=== PATIENT | male | born 1990 | race Two or more races ===

== ENCOUNTER 2025-04-05 16:28 | Emergency (ER) | payer SELFPAY ==
[~2025-04-05] VITALS: Ht 182.9 cm; Wt 90.1 kg
--- NOTE | 2025-04-05 18:51 | ED.PDOC ---
Back pain HPI HPI Comments PT C/O 05/29 BACK PAIN NON RADIATING THAT STARTED WHILE WORKING [employer]. PT REPORTS HAVING TO "PUSH ON SOME PALLETS" BEFORE PAIN BEGAN. DENIES NUMBNESS OR WEAKNESS Chief Complaint: Back Pain Time Seen by MD: 18:38 Reviewed Notes: Nurses Notes, Medications, Allergies Allergies: Coded Allergies: NO KNOWN ALLERGIES (Unverified , 04/05/25) Information Source: Patient Mode of Arrival: Ambulatory Past Medical History PAST MEDICAL HISTORY: Denies Surgical History: Denies all surgeries Family History Family History: Reviewed,noncontributory to illness Social History Smoker: Non-Smoker Alcohol: Denies ETOH Use Drugs: Denies Drug Use Constitutional: denies: chills, diaphoresis, fatigue, fever, malaise, sweats, weakness, others EENTM: denies: blurred vision, double vision, ear bleeding, ear discharge, ear drainage, ear pain, ear ringing, eye pain, eye redness, hearing loss, mouth pain, mouth swelling, nasal discharge, nose bleeding, nose congestion, nose pain, photophobia, tearing, throat pain, throat swelling, voice changes, others Respiratory: denies: cough, hemoptysis, orthopnea, SOB at rest, shortness of breath, SOB with excertion, stridor, wheezing, others Cardiovascular: denies: chest pain, dizzy spells, diaphoresis, Dyspnea on exertion, edema, irregular heart beat, left arm pain, lightheadedness, p alpitations, PND, syncope, others Genitourinary: denies: burning, dysuria, flank pain, frequency, hematuria, incontinence, penile discharge, penile sore, pain, testicle pain, testicle swelling, urgency, others Neurological: denies: dizziness, fainting, headache, left sided numbness, left sided weakness, numbness, paresthesia, pre-existing deficit, right sided numbness, right sided weakness, seizure, speech problems, tingling, tremors, weakness, others Musculoskeletal: reports: back pain; denies: gout, joint pain, joint swelling, muscle pain, muscle stiffness, neck pain, others Integumetry: denies: bruises, change in color, change in hair/nails, dryness, laceration, lesions, lumps, rash, wounds, others Allergic/Immunocompromised: denies: Difficulty Healing, Frequent Infections, Hives, Itching, others Hematologic/Lymphatic: denies: anemia, blood clots, easy bleeding, easy bruising, swollen glands, others Endocrine: denies: excessive hunger, excessive sweating, excessive thirst, excessive urination, flushing, intolerance to cold, intolerance to heat, unexplained weight gain, unexplained weight loss, others Psychiatric: denies: anxiety, bipolar disorder, depression, hopeless, panic disorder, schizophrenia, sleepless, suicidal, others Physical Exam General Appearance: No Apparent Distress, Normal HEENT: Pharynx Normal Neck: Full Range of Motion, Non-Tender Respiratory: Lungs Clear, No Respiratory Distress, Normal Breath Sounds Cardiovascular: No Murmur, Normal Peripheral Pulses, Regular Rate/Rhythm Breast Exam: Deferred Gastrointestinal: Non Tender, Soft Genitalia: Deferred Pelvic: Deferred Rectal: Deferred Extremities: Normal capillary refill, Normal inspection, Normal range of motion, Non-tender, No pedal edema Musculoskeletal : Apperance: Normal Neurologic: Alert, No Motor Deficits, Normal Affect, Normal Mood, No Sensory Deficits Cerebellar Function: Normal Reflexes: Normal Skin: Dry, Normal Color, Warm Lymphatic: No Adenopathy Was a procedure done? Was a procedure done?: No Back Pain Differential Dx Differential Diagnosis: Fracture, Musculoskeletal Pain X-Ray, Labs, Meds, VS Vital Signs Date Time Temp Pulse Resp B/P (MAP) Pulse Ox O2 Delivery O2 Flow Rate FiO2 04/05/25 17:58 97.7 73 16 123/64 (83) 98 97.7 Current Medications Medications (Trade) Dose Ordered Sig/Elif Route Start Time Stop Time Status Last Admin Ketorolac Tromethamine (Toradol Injection) 60 mg ONCE ONCE IM 04/05/25 19:00 04/05/25 19:01 DC 04/05/25 20:00 Dexamethasone Sodium Phosphate (Decadron Injection) 10 mg ONCE ONCE IM 04/05/25 19:00 04/05/25 19:01 DC 04/05/25 19:00 X-Ray, Labs, Meds, VS Comment Lumbar spine x-ray shows no acute fractures subluxations or osseous lesions. Likely lumbar muscle strain. Patient given Toradol and Decadron IM reports improvement in pain and function requesting discharge at this time. Script trial of tizanidine and Medrol Dosepak. Advised take medications as prescribed side effects discussed. Advised on rice. And heat. Follow up with your PCP in 2-3 days as necessary consider further imaging such as MRI or physical therapy if no improvement. ER return precautions given patient indicates understanding agrees with discharge plan of care. Time of 1ST Reevaluation: 18:51 Reevaluation 1ST: Unchanged Time of 2ND Reevaluation: 20:13 Reevaluation 2ND: Improved Patient Education/Counseling: Diagnosis, Treatment, Prognosis, Need For Follow Up Family Education/Counseling: No Family Present SEPSIS Sepsis Screen Date sepsis recognized/suspect: Apr 05, 2025 Time Sepsis recognized/suspect: 1800 Recent Procedure: No On Antibiotic Therapy: No Respiratory Rate >20: No Heart Rate >90: No Temp<36 C (96.8 F) or >38.3 C: No SBP <90 or MAP <65 mmHG: No New Acute Mental Status Change: No Is the patient on CPAP, BIPAP,: No Physician Orders Lumbar Spine 3 View (04/05/25 19:04) Vital Signs Date Time Temp Pulse Resp B/P (MAP) Pulse Ox O2 Delivery O2 Flow Rate FiO2 04/05/25 17:58 97.7 73 16 123/64 (83) 98 97.7 Medications Medications Dose Ordered Sig/Elif Route Start Time Stop Time Status Last Admin Dose Admin Dexamethasone Sodium Phosphate 10 mg ONCE ONCE IM 04/05/25 19:00 04/05/25 19:01 DC 04/05/25 19:00 Ketorolac Tromethamine 60 mg ONCE ONCE IM 04/05/25 19:00 04/05/25 19:01 DC 04/05/25 20:00 Departure 1 Departure Time of Disposition: 20:09 Impression: Primary Impression: Lumbar sprain Qualified Codes: S33.5XXA - Sprain of ligaments of lumbar spine, initial encounter Disposition: 01 HOME / SELF CARE / HOMELESS Condition: Stable e-Prescriptions Tizanidine Hydrochloride (Tizanidine Hcl) 4 Mg Tab 4 MG PO BID PRN for 5 Days, #10 TAB Prov: CHARLEE SANDERS 04/05/25 Methylprednisolone (Medrol Dosepak) 4 Mg Evan 4 MG PO UD for 6 Days, #21 TAB UAD Prov: CHARLEE SANDERS 04/05/25 Discharged With: Self Critical Care Note Critical Care Time?: No Stability Stability form required: No CHARLEE SANDERS Apr 05, 2025 18:51
--- NOTE | 2025-04-05 19:47 | DVH ---
EXAMINATIONS: 3 views of the lumbar spine CLINICAL HISTORY: INJURY/PAIN COMPARISON: None Findings and impression: No grossly displaced fractures or subluxations identified. Visualized vertebral body heights appear maintained. Alignment is relatively preserved. The sacroiliac joints appear symmetric. If there is persistent concern for injury, CT may be considered to further evaluate.
[2025-04-05] MEDS: KETOROLAC TROMETH 60MG/2ML VIAL IM ONE (20:00)
[2025-04-05] MEDS ORDERED: TIZA-142 PO (20:12)
[2025-04-05] MEDS ORDERED: METH4PAK PO (20:12)
[2025-04-05 20:19] VITALS: BP 163/75; PULSE 72; RESP 18; TEMP 98; O2SAT 98
== END 2025-04-05 20:22 | disposition home or self-care (01) ==
LOC: ER 16:28
DX: S33.5XXA Sprain of ligaments of lumbar spine, initial encounter (principal); X50.9XXA Other and unspecified overexertion or strenuous movements or postures, initial encounter; Y93.89 Activity, other specified; Y92.89 Other specified places as the place of occurrence of the external cause; Y99.8 Other external cause status
CPT/HCPCS: 72100; 96372; 99284; J1100; J1885